=== PATIENT | female | born 1945 | race Caucasian/White ===

== ENCOUNTER 2022-11-12 01:34 | Outpatient (RCR) | payer BC, SELFPAY ==
[2022-10-22] MEDS: Normal Saline Flush 10 ML SYR IVP (10:58)
[2022-10-22 11:14] LABS: Abs Immature Grans 0.05 10^3/uL (0.0-0.06); Absolute Basophil Count 0.07 10^3/uL (0.0-0.2); Absolute Monocyte Count 0.67 10^3/uL (0.1-0.8); Basophils % 0.6; Eosinophils % 1.4; Immature Grans % 0.5; Lymphocytes % 33.2; MCH 30.1 pg (27.0-33.0); MCHC 33.3 % (32.0-36.0); MCV 90 fL (80-95); MPV 9.5 fL (8.0-11.0); Neutrophils % 58.3; Platelet Count 374 10^3/uL (130-400); RBC 4.32 10^6/uL (3.93-5.22); RDW 12.9 % (11.7-14.6); RDW-SD 42.2 fL
[2022-10-22 11:16] LABS: Absolute Eosinophil Count 0.16 10^3/uL (0.0-0.7); Absolute Lymphocyte Count 3.69 10^3/uL (1.2-3.4); Absolute Neutrophil Count 6.47 10^3/uL (1.2-6.7)
[2022-10-22 11:30] LABS: ALT 13 U/L (14-59); AST 18 U/L (15-37); Albumin 3.4 g/dL (3.4-5.0); Alkaline Phosphatase 86 U/L (46-116); BUN 17 mg/dL (7-18); Bilirubin, Total 0.2 mg/dL (0.2-1.0); CREATININE 0.4 mg/dL (0.55-1.02); Calcium 8.8 mg/dL (8.5-10.1); Chloride 103 mmol/L (98-107); Estimated GFR 101.87 (mL/min/1.73m2); Glucose 100 mg/dL (74-106); Potassium 3.7 mmol/L (3.5-5.1); Sodium 138 mmol/L (136-145); Total Protein 6.8 g/dL (6.4-8.2)
[2022-10-28 11:28] LABS: Abs Immature Grans 0.04 10^3/uL (0.0-0.06); Absolute Basophil Count 0.05 10^3/uL (0.0-0.2); Absolute Eosinophil Count 0.18 10^3/uL (0.0-0.7); Absolute Lymphocyte Count 1.05 10^3/uL (1.2-3.4); Absolute Monocyte Count 0.79 10^3/uL (0.1-0.8); Absolute Neutrophil Count 5.66 10^3/uL (1.2-6.7); Basophils % 0.6; Eosinophils % 2.3; HCT 40.3 % (36.0-46.0); HGB 13.6 g/dL (11.2-15.7); Immature Grans % 0.5; Lymphocytes % 13.5; MCH 30.2 pg (27.0-33.0); MCHC 33.7 % (32.0-36.0); MCV 90 fL (80-95); MPV 9.2 fL (8.0-11.0); Monocytes % 10.2; Neutrophils % 72.9; Platelet Count 320 10^3/uL (130-400); RDW 13.2 % (11.7-14.6); RDW-SD 42.8 fL; WBC 7.77 10^3/uL (4.4-10.8)
[2022-10-28] MEDS: Normal Saline Flush 10 ML SYR IVP (11:35)
[2022-10-28 11:43] LABS: ALT 11 U/L (14-59); AST 14 U/L (15-37); Albumin 3.2 g/dL (3.4-5.0); Alkaline Phosphatase 90 U/L (46-116); Anion Gap 5.9 mmol/L (3-11); BUN 13 mg/dL (7-18); Bilirubin, Total 0.3 mg/dL (0.2-1.0); CO2 29.1 mmol/L (21.0-32.0); CREATININE 0.4 mg/dL (0.55-1.02); Calcium 8.6 mg/dL (8.5-10.1); Chloride 104 mmol/L (98-107); Estimated GFR 101.87 (mL/min/1.73m2); Glucose 117 mg/dL (74-106); Potassium 3.8 mmol/L (3.5-5.1); Sodium 139 mmol/L (136-145); Total Protein 6.5 g/dL (6.4-8.2)
[2022-11-05] MEDS: Normal Saline Flush 10 ML SYR IVP (11:44)
[2022-11-05 11:56] LABS: Abs Immature Grans 0.03 10^3/uL (0.0-0.06); Absolute Basophil Count 0.06 10^3/uL (0.0-0.2); Absolute Eosinophil Count 0.12 10^3/uL (0.0-0.7); Absolute Lymphocyte Count 1.18 10^3/uL (1.2-3.4); Absolute Monocyte Count 0.69 10^3/uL (0.1-0.8); Absolute Neutrophil Count 5.49 10^3/uL (1.2-6.7); Basophils % 0.8; Eosinophils % 1.6; HGB 13.4 g/dL (11.2-15.7); Immature Grans % 0.4; Lymphocytes % 15.6; MCH 29.8 pg (27.0-33.0); MCHC 33.5 % (32.0-36.0); MCV 89 fL (80-95); MPV 9.7 fL (8.0-11.0); Monocytes % 9.1; Neutrophils % 72.5; Platelet Count 304 10^3/uL (130-400); RBC 4.49 10^6/uL (3.93-5.22); RDW 13.1 % (11.7-14.6); RDW-SD 42.5 fL; WBC 7.57 10^3/uL (4.4-10.8)
[2022-11-05 12:15] LABS: ALT 16 U/L (14-59); AST 22 U/L (15-37); Albumin 3.3 g/dL (3.4-5.0); Alkaline Phosphatase 83 U/L (46-116); Anion Gap 7.5 mmol/L (3-11); BUN 17 mg/dL (7-18); Bilirubin, Total 0.2 mg/dL (0.2-1.0); CO2 28.5 mmol/L (21.0-32.0); CREATININE 0.5 mg/dL (0.55-1.02); Calcium 8.9 mg/dL (8.5-10.1); Chloride 103 mmol/L (98-107); Estimated GFR 96.54 (mL/min/1.73m2); Glucose 106 mg/dL (74-106); Sodium 139 mmol/L (136-145); Total Protein 6.7 g/dL (6.4-8.2)
[2022-11-12] MEDS: Normal Saline Flush 10 ML SYR IVP (09:38)
[2022-11-12 09:42] LABS: Abs Immature Grans 0.02 10^3/uL (0.0-0.06); Absolute Basophil Count 0.05 10^3/uL (0.0-0.2); Absolute Eosinophil Count 0.14 10^3/uL (0.0-0.7); Absolute Lymphocyte Count 0.97 10^3/uL (1.2-3.4); Absolute Monocyte Count 0.71 10^3/uL (0.1-0.8); Absolute Neutrophil Count 6.74 10^3/uL (1.2-6.7); Basophils % 0.6; Eosinophils % 1.6; HCT 40.9 % (36.0-46.0); HGB 13.8 g/dL (11.2-15.7); Immature Grans % 0.2; Lymphocytes % 11.2; MCH 30.3 pg (27.0-33.0); MCHC 33.7 % (32.0-36.0); MCV 90 fL (80-95); MPV 9.4 fL (8.0-11.0); Monocytes % 8.2; Neutrophils % 78.2; Platelet Count 329 10^3/uL (130-400); RBC 4.55 10^6/uL (3.93-5.22); RDW 13.2 % (11.7-14.6); RDW-SD 43.5 fL; WBC 8.63 10^3/uL (4.4-10.8)
[2022-11-12 09:57] LABS: ALT 15 U/L (14-59); AST 14 U/L (15-37); Albumin 3.2 g/dL (3.4-5.0); Alkaline Phosphatase 84 U/L (46-116); Anion Gap 6.2 mmol/L (3-11); BUN 16 mg/dL (7-18); Bilirubin, Total 0.3 mg/dL (0.2-1.0); CO2 28.8 mmol/L (21.0-32.0); CREATININE 0.5 mg/dL (0.55-1.02); Calcium 8.6 mg/dL (8.5-10.1); Chloride 105 mmol/L (98-107); Estimated GFR 96.54 (mL/min/1.73m2); Glucose 140 mg/dL (74-106); Potassium 3.7 mmol/L (3.5-5.1); Sodium 140 mmol/L (136-145); Total Protein 6.5 g/dL (6.4-8.2)
== END 2022-11-18 23:59 | disposition home or self-care (01) ==
LOC: INF 01:34
PROVIDERS: PCP Family Medicine; Visit Provider Nurse Practitioner Adult Health
DX: Z45.2 Encounter for adjustment and management of vascular access device (principal); C84.10 Sezary disease, unspecified site
CPT/HCPCS: 36591; 80053; 85025

== ENCOUNTER 2022-12-19 12:30 | Outpatient (RCR) | payer BC, SELFPAY ==
[2022-11-19 10:37] LABS: Abs Immature Grans 0.03 10^3/uL (0.0-0.06); Absolute Basophil Count 0.04 10^3/uL (0.0-0.2); Absolute Eosinophil Count 0.12 10^3/uL (0.0-0.7); Absolute Lymphocyte Count 0.96 10^3/uL (1.2-3.4); Absolute Monocyte Count 0.65 10^3/uL (0.1-0.8); Absolute Neutrophil Count 6.46 10^3/uL (1.2-6.7); Basophils % 0.5; Eosinophils % 1.5; HCT 40.6 % (36.0-46.0); HGB 13.7 g/dL (11.2-15.7); Immature Grans % 0.4; Lymphocytes % 11.6; MCH 30.3 pg (27.0-33.0); MCHC 33.7 % (32.0-36.0); MCV 90 fL (80-95); MPV 9.6 fL (8.0-11.0); Monocytes % 7.9; Neutrophils % 78.1; Platelet Count 314 10^3/uL (130-400); RBC 4.52 10^6/uL (3.93-5.22); RDW 13.2 % (11.7-14.6); RDW-SD 43.8 fL; WBC 8.26 10^3/uL (4.4-10.8)
[2022-11-19] MEDS: Normal Saline Flush 10 ML SYR IVP (10:37)
[2022-11-19 10:56] LABS: ALT 14 U/L (14-59); AST 14 U/L (15-37); Albumin 3.3 g/dL (3.4-5.0); Alkaline Phosphatase 84 U/L (46-116); Anion Gap 6.2 mmol/L (3-11); BUN 18 mg/dL (7-18); Bilirubin, Total 0.3 mg/dL (0.2-1.0); CO2 28.8 mmol/L (21.0-32.0); CREATININE 0.5 mg/dL (0.55-1.02); Calcium 8.8 mg/dL (8.5-10.1); Chloride 105 mmol/L (98-107); Estimated GFR 96.54 (mL/min/1.73m2); Glucose 104 mg/dL (74-106); Sodium 140 mmol/L (136-145); Total Protein 6.7 g/dL (6.4-8.2)
[2022-12-04] MEDS: Normal Saline Flush 10 ML SYR IVP (13:10)
[2022-12-04 13:14] LABS: Abs Immature Grans 0.01 10^3/uL (0.0-0.06); Absolute Basophil Count 0.06 10^3/uL (0.0-0.2); Absolute Eosinophil Count 0.11 10^3/uL (0.0-0.7); Absolute Lymphocyte Count 0.95 10^3/uL (1.2-3.4); Absolute Neutrophil Count 5.32 10^3/uL (1.2-6.7); Basophils % 0.9; Eosinophils % 1.6; HCT 40.8 % (36.0-46.0); HGB 13.8 g/dL (11.2-15.7); Immature Grans % 0.1; Lymphocytes % 13.5; MCH 30.5 pg (27.0-33.0); MCHC 33.8 % (32.0-36.0); MCV 90 fL (80-95); MPV 9.8 fL (8.0-11.0); Monocytes % 8.5; Neutrophils % 75.4; Platelet Count 286 10^3/uL (130-400); RBC 4.52 10^6/uL (3.93-5.22); RDW 12.8 % (11.7-14.6); RDW-SD 42.8 fL; WBC 7.05 10^3/uL (4.4-10.8)
[2022-12-04 13:28] LABS: ALT 15 U/L (14-59); AST 19 U/L (15-37); Albumin 3.3 g/dL (3.4-5.0); Alkaline Phosphatase 79 U/L (46-116); Anion Gap 5.7 mmol/L (3-11); BUN 18 mg/dL (7-18); Bilirubin, Total 0.2 mg/dL (0.2-1.0); CO2 28.3 mmol/L (21.0-32.0); CREATININE 0.4 mg/dL (0.55-1.02); Calcium 8.8 mg/dL (8.5-10.1); Chloride 104 mmol/L (98-107); Estimated GFR 101.87 (mL/min/1.73m2); Glucose 88 mg/dL (74-106); Potassium 3.6 mmol/L (3.5-5.1); Sodium 138 mmol/L (136-145); Total Protein 6.7 g/dL (6.4-8.2)
[2022-12-19] MEDS: Normal Saline Flush 10 ML SYR IVP (12:29)
[2022-12-19 12:37] LABS: Abs Immature Grans 0.02 10^3/uL (0.0-0.06); Absolute Basophil Count 0.05 10^3/uL (0.0-0.2); Absolute Eosinophil Count 0.11 10^3/uL (0.0-0.7); Absolute Lymphocyte Count 0.85 10^3/uL (1.2-3.4); Absolute Monocyte Count 0.58 10^3/uL (0.1-0.8); Absolute Neutrophil Count 4.88 10^3/uL (1.2-6.7); Basophils % 0.8; Eosinophils % 1.7; HCT 38.6 % (36.0-46.0); HGB 13.3 g/dL (11.2-15.7); Immature Grans % 0.3; Lymphocytes % 13.1; MCH 30.7 pg (27.0-33.0); MCHC 34.5 % (32.0-36.0); MCV 89 fL (80-95); MPV 9.6 fL (8.0-11.0); Monocytes % 8.9; Neutrophils % 75.2; Platelet Count 265 10^3/uL (130-400); RBC 4.33 10^6/uL (3.93-5.22); RDW 12.6 % (11.7-14.6); RDW-SD 41.5 fL; WBC 6.49 10^3/uL (4.4-10.8)
[2022-12-19 12:51] LABS: ALT 16 U/L (14-59); AST 16 U/L (15-37); Albumin 3.1 g/dL (3.4-5.0); Alkaline Phosphatase 74 U/L (46-116); Anion Gap 6.1 mmol/L (3-11); BUN 15 mg/dL (7-18); Bilirubin, Total 0.2 mg/dL (0.2-1.0); CO2 28.9 mmol/L (21.0-32.0); CREATININE 0.4 mg/dL (0.55-1.02); Calcium 8.8 mg/dL (8.5-10.1); Chloride 104 mmol/L (98-107); Estimated GFR 101.87 (mL/min/1.73m2); Glucose 102 mg/dL (74-106); Potassium 3.8 mmol/L (3.5-5.1); Sodium 139 mmol/L (136-145); Total Protein 6.3 g/dL (6.4-8.2)
== END 2022-12-19 23:59 | disposition home or self-care (01) ==
LOC: INF 12:30
PROVIDERS: PCP Family Medicine; Visit Provider Nurse Practitioner Adult Health
DX: Z45.2 Encounter for adjustment and management of vascular access device (principal); C84.10 Sezary disease, unspecified site
CPT/HCPCS: 36591; 80053; 85025

== ENCOUNTER 2023-01-16 09:30 | Outpatient (RCR) | payer BC, SELFPAY ==
[2022-12-31] MEDS: Normal Saline Flush 10 ML SYR IVP (13:40)
--- OUTSIDE RECORDS SUMMARY | 2022-12-31 13:42 | XMS_ITS | Continuity of Care Document ---
Author Name Unknown Organization 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 Name Role Phone Jackson Robin Primary Care Physician [phone] Encounter [facility] [id number] Date(s): 07/25/22 - 07/25/22 [facility] [address] [place] [address] Discharge Disposition: Home or Self Care Attending Physician: Channing Downs MD Admitting Physician: Channing Downs MD Referring Physician: Channing Downs MD Allergies, Adverse Reactions, Alerts No Known Medication Allergies Functional Status 07/25/22 ADLs Independent Family Member Travel History No recent t ravel Recent Travel History No recent travel Other exposure to Infectious Disease Non e Immunizations Given and Recorded Vaccine Date Status Refusal Reason tetanus-diphth toxoids (Td) adult/adol 12/04/21 Re corded SARS-CoV-2 (COVID-19) mRNA-1273 vaccine 08/05/21 R ecorded SARS-CoV-2 (COVID-19) mRNA-1273 vaccine 12/05/20 R ecorded SARS-CoV-2 (COVID-19) mRNA-1273 vaccine 11/07/20 R ecorded influenza, unspecified formulation 06/19/21 Record ed influenza, unspecified formulation 06/13/20 Record ed influenza, unspecified formulation 06/09/19 Record ed influenza, unspecified formulation 06/17/18 Record ed influenza, unspecified formulation 06/04/17 Record ed influenza virus vaccine, inactivated 06/24/16 Joel rded influenza virus vaccine, inactivated 06/27/15 Joel rded influenza virus vaccine, inactivated 06/14/14 Joel rded influenza virus vaccine, inactivated 06/15/13 Joel rded influenza virus vaccine, inactivated 06/10/12 Joel rded influenza virus vaccine, inactivated 06/06/11 Joel rded influenza virus vaccine, inactivated 06/21/10 Joel rded influenza virus vaccine, inactivated 09/06/09 Joel rded influenza virus vaccine, inactivated 06/14/08 Joel rded influenza virus vaccine, inactivated 07/05/07 Joel rded influenza virus vaccine, inactivated 06/21/06 Joel rded pneumococcal 13-valent conjugate vaccine 08/13/15 Recorded zoster vaccine live 12/16/12 Recorded tetanus/diphth/pertuss (Tdap) adult/adol 10/15/11 Recorded pneumococcal 23-polyvalent vaccine 06/26/10 Record ed Medications emollient topical cream emollient topical cream, PRN other (see comment), apply 5 g twice a day by topical route as needed Start Date: 04/29/22 Status: Ordered Estrace 2 mg oral tablet 2 mg = 1 tab, Oral, Daily, # 90 tab, 0 Refill(s) Start Date: 03/12/22 Status: Ordered hydrOXYzine hydrochloride 10 mg oral tablet 0 Refill(s) Start Date: 03/12/22 Status: Ordered ibuprofen 600 mg oral tablet Start Date: 04/29/22 Status: Ordered multivitamin adult, oral tablet 1 tab, Oral, every morning Start Date: 04/29/22 Status: Ordered Synthroid 50 mcg (0.05 mg) oral tablet 50 mcg = 1 tab, Oral, Daily, # 60 tab, 0 Refill(s) Start Date: 03/12/22 Status: Ordered triamcinolone 0.1% topical ointment Start Date: 04/29/22 Status: Ordered Problem List Condition Confirmation Course Effective Dates Status H ealth Status Informant Abnormal gait Confirmed Active Aortic valve regurgitation Confirmed Active 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 Benign paroxysmal positional vertigo Confirmed Active Cataract 1 Confirmed 09/13/18 Active Cervical spondylosis with radiculopathy Confirmed Active Degeneration of cervical intervertebral disc Confirmed Active Dizziness and giddiness Confirmed Active Elevated blood pressure reading Confirmed Active Essential thrombocythemia Confirmed Active Gastroesophageal reflux disease Confirmed Active Hypertension Confirmed Active Hypothyroidism Confirmed Active Lymphoma, Hodgkins 2 Confirmed Active Neck pain Confirmed Active Palpitations Confirmed Active Blood pressure check Confirmed Active Postoperative nausea and vomiting Confirmed 01/31/19 Active Rosacea Confirmed Active Small vessel cerebrovascular disease Confirmed Active Positive colorectal cancer screening using Cologuard test Confirmed Active 1Right 2NON Hodg. Lymphoma Procedures Procedure Date Related Diagnosis Body Site Status Release palm contracture 1 06/03/21 Completed Release 2 10/29/20 Completed Procedure on hand 3 02/01/19 Compl eted Procedure on hand 4 07/07/18 Compl eted Cervical spine surgery 5 09/20/04 Completed Cholecystectomy 1987 Completed Appendectomy Completed Brain surgery 6, 7 Comple dylan Colonoscopy 8 Completed Hysterectomy Completed Placement procedure 9, 10, 11 Completed 1L palmar Dupuytren's contracture w/index finger extension 2excision of Dupuytren's contracture palmar plus digital extension to the R long finger 3R long finger soft tissue skin rearrangement for 3cm length 4removal of palmar Dupuytren's w/ extension out to the PIP of the L small finger 5C5-C6 level 6Removed 20+ yrs ago. 7Tumor removed, done in [place] 8X2 9Power Port ( Mediport ) placed 03/18/22 at [facility]. 10Right Chest. 11. Vital Signs Most recent to oldest [Reference Range]: 1 2 3 Temperature Temporal Artery [36-38 Deg C] 36.3 Deg C (07/25/22 3:15 PM) 36.3 Deg C (07/25/22 2:48 PM) 37.0 Deg C (07/25/22 12:33 PM) Temperature Temporal Artery (DegF) [97.3-100 Deg F] 97.34 Deg F (07/25/22 3:15 PM) 97.34 Deg F (07/25/22 2:48 PM) Peripheral Pulse Rate [60-100 bpm] 66 bpm (07/25/22 3:15 PM) 67 bpm (07/25/22 3:00 PM) 66 bpm (07/25/22 2:55 PM) Heart Rate Monitored [60-100 bpm] 68 bpm (07/25/22 3:15 PM) 68 bpm (07/25/22 3:00 PM) 67 bpm (07/25/22 2:55 PM) Respiratory Rate [12-24 br/min] 22 br/min (07/25/22 3:15 PM) 12 br/min (07/25/22 3:00 PM) 17 br/min (07/25/22 2:55 PM) Blood Pressure [90-140/60-90 mmHg] 140/81mmHg (07/25/22 3:15 PM) 139/64mmHg (07/25/22 3:00 PM) 150/62mmHg *HI* (07/25/22 2:55 PM) Mean Arterial Pressure, Cuff [65-140 mmHg] 101 mmHg (07/25/22 3:15 PM) 89 mmHg (07/25/22 3:00 PM) 91 mmHg (07/25/22 2:55 PM) Height 147.000 cm (07/24/22 9:58 AM) Height/Length Dosing 147.000 cm (07/24/22 9:58 AM) Social History Social History Type Response Tobacco Former tobacco user Tobacco Use:. Sex Female Hospital Discharge Instructions Patient Education 07/25/2022 14:05:09 ss colonoscopy discharge instructions (CUSTOM) COLONOSCOPY / SIGMOIDOSCOPY Following day: Return to full activity, including work. Diet: Eat and drink normally, unless instructed otherwise. Treatment for common after affects: Mild abdominal pain, bloating, or excessive gas: Rest, eat lightly and use a heating pad. Symptoms to watch for and report to your physician: SEVERE abdominal pain or bloating. Fever within 24 hours after procedure. A large amount of rectal bleeding. (A small amount of blood from the rectum is not serious, especially if hemorrhoids are present.) If a polyp has been removed- for the next seven days: Do not take aspirin. If you did NOT stop taking aspirin before your procedure, continue taking it even if you???ve had a polyp removed. If bright red rectal bleeding occurs, call your physician. If you have had a Colonoscopy: Do not attempt to drive a vehicle or operate power equipment of any kind for at least 24 hours after discharge from the hospital. Do not consume alcoholic beverages or other mood-altering drugs on the day of surgery. Mild irritation at needle site: Apply warm, moist pack to area for 20 minutes four times a day for 2-3 days. Call physician if persistent redness and/or drainage at needle site. In the event of any problems after surgery, do not hesitate to contact your doctor, [facility] , or the Emergency Room at [phone]. Diagnosis: Doctor: Follow Up Appointment: 07/25/2022 14:04:56 Diverticulosis Diverticulosis Diverticulosis is a condition that develops when small pouches (diverticula) form in the wall of the large intestine (colon). The colon is where water is absorbed and stool (feces) is formed. The pouches form when the inside layer of the colon pushes through weak spots in the outer layers of the colon. You may have a few pouches or many of them. The pouches usually do not cause problems unless they become inflamed or infected. When this happens, the condition is called diverticulitis. What are the causes? The cause of this condition is not known. What increases the risk? The following factors may make you more likely to develop this condition: ??? Being older than age 60. Your risk for this condition increases with age. Diverticulosis is rare among people younger than age 30. By age 80, many people have it. ??? Eating a low-fiber diet. ??? Having frequent constipation. ??? Being overweight. ??? Not getting enough exercise. ??? Smoking. ??? Taking nmyz-ilj-aauzjon pain medicines, like aspirin and ibuprofen. ??? Having a family history of diverticulosis. What are the signs or symptoms? In most people, there are no symptoms of this condition. If you do have symptoms, they may include: ??? Bloating. ??? Cramps in the abdomen. ??? Constipation or diarrhea. ??? Pain in the lower left side of the abdomen. How is this diagnosed? Because diverticulosis usually has no symptoms, it is most often diagnosed during an exam for othercolon problems. The condition may be diagnosed by: ??? Using a flexible scope to examine the colon (colonoscopy). ??? Taking an X-ray of the colon after dye has been put into the colon (barium enema). ??? Having a CT scan. How is this treated? You may not need treatment for this condition. Your health care provider may recommend treatment toprevent problems. You may need treatment if you have symptoms or if you previously had diverticulitis. Treatment may include: ??? Eating a high-fiber diet. ??? Taking a fiber supplement. ??? Taking a live bacteria supplement (probiotic). ??? Taking medicine to relax your colon. Follow these instructions at home: Medicines ??? Take qjbj-zma-qeaxdfe and prescription medicines only as told by your health care provider. ??? If told by your health care provider, take a fiber supplement or probiotic. Constipation prevention Your condition may cause constipation. To prevent or treat constipation, you may need to: ??? Drink enough fluid to keep your urine pale yellow. ??? Take mwbw-nyg-ontrgej or prescription medicines. ??? Eat foods that are high in fiber, such as beans, whole grains, and fresh fruits and vegetables. ??? Limit foods that are high in fat and processed sugars, such as fried or sweet foods. General instructions ??? Try not to strain when you have a bowel movement. ??? Keep all follow-up visits as told by your health care provider. This is important. Contact a health care provider if you: ??? Have pain in your abdomen. ??? Have bloating. ??? Have cramps. ??? Have not had a bowel movement in 3 days. Get help right away if: ??? Your pain gets worse. ??? Your bloating becomes very bad. ??? You have a fever or chills, and your symptoms suddenly get worse. ??? You vomit. ??? You have bowel movements that are bloody or black. ??? You have bleeding from your rectum. Summary ??? Diverticulosis is a condition that develops when small pouches (diverticula) form in the wall of the large intestine (colon). ??? You may have a few pouches or many of them. ??? This condition is most often diagnosed during an exam for other colon problems. ??? Treatment may include increasing the fiber in your diet, taking supplements, or taking medicines. This information is not intended to replace advice given to you by your health care provider. Make sure you discuss any questions you have with your health care provider. Document Revised: 04/05/2020 Document Reviewed: 04/05/2020 [employer] Patient Education ?? 2021 [employer] 07/25/2022 14:04:54 Colon Polyps Colon Polyps Colon polyps are tissue growths inside the colon, which is part of the large intestine. They are one of the types of polyps that can grow in the body. A polyp may be a round bump or a mushroom-shapedgrowth. You could have one polyp or more than one. Most colon polyps are noncancerous (benign). However, some colon polyps can become cancerous over time. Finding and removing the polyps early can help prevent this. What are the causes? The exact cause of colon polyps is not known. What increases the risk? The following factors may make you more likely to develop this condition: ??? Having a family history of colorectal cancer or colon polyps. ??? Being older than 45 years of age. ??? Being younger than 45 years of age and having a significant family history of colorectal canceror colon polyps or a genetic condition that puts you at higher risk of getting colon polyps. ??? Having inflammatory bowel disease, such as ulcerative colitis or Crohn's disease. ??? Having certain conditions passed from parent to child (hereditary conditions), such as: ??? Familial adenomatous polyposis (FAP). ??? [place] syndrome. ??? Turcot syndrome. ??? Peutz???Jeghers syndrome. ??? MUTYH-associated polyposis (MAP). ??? Being overweight. ??? Certain lifestyle factors. These include smoking cigarettes, drinking too much alcohol, not getting enough exercise, and eating a diet that is high in fat and red meat and low in fiber. ??? Having had childhood cancer that was treated with radiation of the abdomen. What are the signs or symptoms? Many times, there are no symptoms. If you have symptoms, they may include: ??? Blood coming from the rectum during a bowel movement. ??? Blood in the stool (feces). The blood may be bright red or very dark in color. ??? Pain in the abdomen. ??? A change in bowel habits, such as constipation or diarrhea. How is this diagnosed? This condition is diagnosed with a colonoscopy. This is a procedure in which a lighted, flexible scope is inserted into the opening between the buttocks (anus) and then passed into the colon to examine the area. Polyps are sometimes found when a colonoscopy is done as part of routine cancer screening tests. How is this treated? This condition is treated by removing any polyps that are found. Most polyps can be removed during a colonoscopy. Those polyps will then be tested for cancer. Additional treatment may be needed depending on the results of testing. Follow these instructions at home: Eating and drinking ??? Eat foods that are high in fiber, such as fruits, vegetables, and whole grains. ??? Eat foods that are high in calcium and vitamin D, such as milk, cheese, yogurt, eggs, liver, fish, and broccoli. ??? Limit foods that are high in fat, such as fried foods and desserts. ??? Limit the amount of red meat, precooked or cured meat, or other processed meat that you eat, such as hot dogs, sausages, anderson, or meat loaves. ??? Limit sugary drinks. Lifestyle ??? Maintain a healthy weight, or lose weight if recommended by your health care provider. ??? Exercise every day or as told by your health care provider. ??? Do not use any products that contain nicotine or tobacco, such as cigarettes, e-cigarettes, andchewing tobacco. If you need help quitting, ask your health care provider. ??? Do not drink alcohol if: ??? Your health care provider tells you not to drink. ??? You are , may be , or are planning to become . ??? If you drink alcohol: ??? Limit how much you use to: ??? 0???1 drink a day for women. ??? 0???2 drinks a day for men. ??? Know how much alcohol is in your drink. In the [place] one drink equals one 12 oz bottle of beer (355 mL), one 5 oz glass of wine (148 mL), or one 1?? oz glass of hard liquor (44 mL). General instructions ??? Take obil-twx-tiylnte and prescription medicines only as told by your health care provider. ??? Keep all follow-up visits. This is important. This includes having regularly scheduled colonoscopies. Talk to your health care provider about when you need a colonoscopy. Contact a health care provider if: ??? You have new or worsening bleeding during a bowel movement. ??? You have new or increased blood in your stool. ??? You have a change in bowel habits. ??? You lose weight for no known reason. Summary ??? Colon polyps are tissue growths inside the colon, which is part of the large intestine. They are one type of polyp that can grow in the body. ??? Most colon polyps are noncancerous (benign), but some can become cancerous over time. ??? This condition is diagnosed with a colonoscopy. ??? This condition is treated by removing any polyps that are found. Most polyps can be removed during a colonoscopy. This information is not intended to replace advice given to you by your health care provider. Make sure you discuss any questions you have with your health care provider. Document Revised: 12/26/2020 Document Reviewed: 12/26/2020 [employer] Patient Education ?? 2021 [employer]. Discharge instructions * Jose M Connelly RN: PERFORM Event Display: Discharge Instructions Authored Date: [id number] ANATOLIY MCCARTHY :1945 Age:77 years Sex:Female Visit Date:07/25/2022 Primary Care Physician: Jackson Robin MD Hospital Discharge Instructions We would like to thank you for allowing us to assist you with your healthcare needs. The following includes patient education materials and information regarding your injury/illness. After you leave the hospital, you may get your health information including your test results, physician notes and discharge information by accessing your Patient Portal. Your Next Steps Discharge Orders Discharge Patient Instructions, Rest today. Resume diet and activities as tolerated. Your Summary Your Care Team Admitting Physician - Channing Downs MD Attending Physician - Channing Downs MD Primary Care Physician - Jackson Robin MD Referring Physician - Channing Downs MD Allergies No Known Medication Allergies Education Materials COLONOSCOPY / SIGMOIDOSCOPY ? Following day: Return to full activity, including work. Diet: Eat and drink normally, unless instructed otherwise. ? Treatment for common after affects: Mild abdominal pain, bloating, or excessive gas: Rest, eat lightly and use a heating pad. ? Symptoms to watch for and report to your physician: SEVERE abdominal pain or bloating. ? Fever within 24 hours after procedure. ? A large amount of rectal bleeding. (A small amount of blood from the rectum is not serious, especially if hemorrhoids are present.) ? If a polyp has been removed- for the next seven days: Do not take aspirin. If you did NOT stop taking aspirin before your procedure, continue taking it even if you???ve had a polyp removed. ? If bright red rectal bleeding occurs, call your physician. ? If you have had a Colonoscopy: Do not attempt to drive a vehicle or operate power equipment of any kind for at least 24 hours after discharge from the hospital. ? Do not consume alcoholic beverages or other mood-altering drugs on the day of surgery. ? Mild irritation at needle site: Apply warm, moist pack to area for 20 minutes four times a day for 2-3 days. ? Call physician if persistent redness and/or drainage at needle site. ? In the event of any problems after surgery, do not hesitate to contact your doctor, [facility] , or the Emergency Room at [phone]. Diagnosis: Doctor: Follow Up Appointment: Diverticulosis Diverticulosis is a condition that develops when small pouches (diverticula) form in the wall of the large intestine (colon). The colon is where water is absorbed and stool (feces) is formed. The pouches form when the inside layer of the colon pushes through weak spots in the outer layers of the colon. You may have a few pouches or many of them. The pouches usually do not cause problems unless they become inflamed or infected. When this happens, the condition is called diverticulitis. What are the causes? The cause of this condition is not known. What increases the risk? The following factors may make you more likely to develop this condition: ? Being older than age 60. Your risk for this condition increases with age. Diverticulosis is rare among people younger than age 30. By age 80, many people have it. ? Eating a low-fiber diet. ? Having frequent constipation. ? Being overweight. ? Not getting enough exercise. ? Smoking. ? Taking heug-pme-xtpsfoa pain medicines, like aspirin and ibuprofen. ? Having a family history of diverticulosis. What are the signs or symptoms? In most people, there are no symptoms of this condition. If you do have symptoms, they may include: ? Bloating. ? Cramps in the abdomen. ? Constipation or diarrhea. ? Pain in the lower left side of the abdomen. How is this diagnosed? Because diverticulosis usually has no symptoms, it is most often diagnosed during an exam for othercolon problems. The condition may be diagnosed by: ? Using a flexible scope to examine the colon (colonoscopy). ? Taking an X-ray of the colon after dye has been put into the colon (barium enema). ? Having a CT scan. How is this treated? You may not need treatment for this condition. Your health care provider may recommend treatment toprevent problems. You may need treatment if you have symptoms or if you previously had diverticulitis. Treatment may include: ? Eating a high-fiber diet. ? Taking a fiber supplement. ? Taking a live bacteria supplement (probiotic). ? Taking medicine to relax your colon. Follow these instructions at home: Medicines ? Take mpry-tsd-pvqirpu and prescription medicines only as told by your health care provider. ? If told by your health care provider, take a fiber supplement or probiotic. Constipation prevention Your condition may cause constipation. To prevent or treat constipation, you may need to: ? Drink enough fluid to keep your urine pale yellow. ? Take xafc-gqx-ammypex or prescription medicines. ? Eat foods that are high in fiber, such as beans, whole grains, and fresh fruits and vegetables. ? Limit foods that are high in fat and processed sugars, such as fried or sweet foods. General instructions ? Try not to strain when you have a bowel movement. ? Keep all follow-up visits as told by your health care provider. This is important. Contact a health care provider if you: ? Have pain in your abdomen. ? Have bloating. ? Have cramps. ? Have not had a bowel movement in 3 days. Get help right away if: ? Your pain gets worse. ? Your bloating becomes very bad. ? You have a fever or chills, and your symptoms suddenly get worse. ? You vomit. ? You have bowel movements that are bloody or black. ? You have bleeding from your rectum. Summary ? Diverticulosis is a condition that develops when small pouches (diverticula) form in the wall of the large intestine (colon). ? You may have a few pouches or many of them. ? This condition is most often diagnosed during an exam for other colon problems. ? Treatment may include increasing the fiber in your diet, taking supplements, or taking medicines. This information is not intended to replace advice given to you by your health care provider. Make sure you discuss any questions you have with your health care provider. Document Revised: 04/05/2020 Document Reviewed: 04/05/2020 [employer] Patient Education ?? 2021 [employer]. Colon Polyps Colon polyps are tissue growths inside the colon, which is part of the large intestine. They are one of the types of polyps that can grow in the body. A polyp may be a round bump or a mushroom-shapedgrowth. You could have one polyp or more than one. Most colon polyps are noncancerous (benign). However, some colon polyps can become cancerous over time. Finding and removing the polyps early can help prevent this. What are the causes? The exact cause of colon polyps is not known. What increases the risk? The following factors may make you more likely to develop this condition: ? Having a family history of colorectal cancer or colon polyps. ? Being older than 45 years of age. ? Being younger than 45 years of age and having a significant family history of colorectal cancer or colon polyps or a genetic condition that puts you at higher risk of getting colon polyps. ? Having inflammatory bowel disease, such as ulcerative colitis or Crohn's disease. ? Having certain conditions passed from parent to child (hereditary conditions), such as: ? Familial adenomatous polyposis (FAP). ? [place] syndrome. ? Turcot syndrome. ? Peutz???Jeghers syndrome. ? MUTYH-associated polyposis (MAP). ? Being overweight. ? Certain lifestyle factors. These include smoking cigarettes, drinking too much alcohol, not gettingenough exercise, and eating a diet that is high in fat and red meat and low in fiber. ? Having had childhood cancer that was treated with radiation of the abdomen. What are the signs or symptoms? Many times, there are no symptoms. If you have symptoms, they may include: ? Blood coming from the rectum during a bowel movement. ? Blood in the stool (feces). The blood may be bright red or very dark in color. ? Pain in the abdomen. ? A change in bowel habits, such as constipation or diarrhea. How is this diagnosed? This condition is diagnosed with a colonoscopy. This is a procedure in which a lighted, flexible scope is inserted into the opening between the buttocks (anus) and then passed into the colon to examine the area. Polyps are sometimes found when a colonoscopy is done as part of routine cancer screening tests. How is this treated? This condition is treated by removing any polyps that are found. Most polyps can be removed during a colonoscopy. Those polyps will then be tested for cancer. Additional treatment may be needed depending on the results of testing. Follow these instructions at home: Eating and drinking ? Eat foods that are high in fiber, such as fruits, vegetables, and whole grains. ? Eat foods that are high in calcium and vitamin D, such as milk, cheese, yogurt, eggs, liver, fish, and broccoli. ? Limit foods that are high in fat, such as fried foods and desserts. ? Limit the amount of red meat, precooked or cured meat, or other processed meat that you eat, such as hot dogs, sausages, anderson, or meat loaves. ? Limit sugary drinks. Lifestyle ? Maintain a healthy weight, or lose weight if recommended by your health care provider. ? Exercise every day or as told by your health care provider. ? Do not use any products that contain nicotine or tobacco, such as cigarettes, e- cigarettes, and chewing tobacco. If you need help quitting, ask your health care provider. ? Do not drink alcohol if: ? Your health care provider tells you not to drink. ? You are , may be , or are planning to become . ? If you drink alcohol: ? Limit how much you use to: ? 0???1 drink a day for women. ? 0???2 drinks a day for men. ? Know how much alcohol is in your drink. In the [place] one drink equals one 12 oz bottle of beer (355mL), one 5 oz glass of wine (148 mL), or one 1?? oz glass of hard liquor (44 mL). General instructions ? Take tezj-gsa-qiexoma and prescription medicines only as told by your health care provider. ? Keep all follow-up visits. This is important. This includes having regularly scheduled colonoscopies. Talk to your health care provider about when you need a colonoscopy. Contact a health care provider if: ? You have new or worsening bleeding during a bowel movement. ? You have new or increased blood in your stool. ? You have a change in bowel habits. ? You lose weight for no known reason. Summary ? Colon polyps are tissue growths inside the colon, which is part of the large intestine. They are one type of polyp that can grow in the body. ? Most colon polyps are noncancerous (benign), but some can become cancerous over time. ? This condition is diagnosed with a colonoscopy. ? This condition is treated by removing any polyps that are found. Most polyps can be removed during a colonoscopy. This information is not intended to replace advice given to you by your health care provider. Make sure you discuss any questions you have with your health care provider. Document Revised: 12/26/2020 Document Reviewed: 12/26/2020 [employer] Patient Education ?? 2021 [employer] Patient Name:ANATOLIY MCCARTHY I have received this information and my questions have been answered. 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 Proceed as planned.? Channing Downs MD 07/25/2022 ?? Electronically Signed on 07/25/22 01:56 PM Channing Downs MD * Laura Tijerina: PERFORM Event Display: History and Physical Authored Date: [id number] ANATOLIY MCCARTHY :1945 Age:76 years Sex:Female Primary Care Physician: Jackson Robin MD Chief Complaint positive cologuard History of Present Illness The patient has a positive Cologuard test. ?? She states receiving a notification that she was due for a colonoscopy screening and initially opted for the Cologuard test before scheduling her diagnostic colonoscopy. ?? She denies any change in bowel habits in the last year such as:??diarrhea, abdominal pain, weight change, hematochezia, black or tarry stools, or fx hx of colon cancer. She has fx hx of Crohn's in her niece and grand-niece.??She has hx of one polyp in the past with approximately??6 cscopes altogether. She believes her last one was more than 5 years ago. She prefers to be awake, but??moderately??sedated for her procedure. ?? She is s/p hysterectomy and appendectomy. 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 ? Review of Systems A complete 12 point ROS was obtained and negative except for those mentioned in the HPI.?? Physical Exam General: Non-labored breathing pattern ?? Cardio: RRR ?? Abdominal: Soft, NT, ND Assessment/Plan Positive colorectal cancer screening using Cologuard test??[id number] ?We discussed the implications of a stool DNA-based colorectal screening test:? Colonoscopy performed for a positive Cologuard may demonstrate one of the following findings: Colorectal cancer, 4%, advanced adenoma including sessile serrated polyps greater than or equal to 1 cm, 20%, or non-advanced adenoma, 31%, or no colorectal neoplasia, 45%. These means are derived from a prospective cross-sectional screening study of 10,000 individuals at average risk for colorectal cancer who were screened with both Cologuard and colonoscopy. ?? Risks, benefits and alternatives to the procedure were discussed with the patient in detail. Risks,including but not limited to, bleeding, infection, perforation, missed lesions, need to reoperate, failure to resolve symptoms and pain were discussed with the patient who understood these risks and requested to proceed as planned. ?? All questions answered. Patient understood and agreed with the above plan. ?? I have reviewed the EMR, including records from PCP, specialists along with review of imaging/diagnostics, which were discussed with the patient where applicable to current presentation. Problem List/Past Medical History Ongoing ?Abnormal gait ??Aortic valve regurgitation ??Autoimmune thyroiditis ??Benign neoplasm of cerebral meninges ??Benign paroxysmal positional vertigo ??Blood pressure check ??Cataract ??Cervical spondylosis with radiculopathy ??Degeneration of cervical intervertebral disc ??Dizziness and giddiness ??Elevated blood pressure reading ??Essential thrombocythemia ??Gastroesophageal reflux disease ??Hypertension ??Hypothyroidism ??Neck pain ??Palpitations ??Positive colorectal cancer screening using Cologuard test ??Postoperative nausea and vomiting ??Rosacea ??Small vessel cerebrovascular disease Historical ?No qualifying data Procedure/Surgical History ???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 Medications ??emollient topical cream, PRN, apply 5 g twice a day by topical route as needed ??Estrace 2 mg oral tablet, 2 mg= 1 tab, Oral, Daily ??hydrOXYzine hydrochloride 10 mg oral tablet ??ibuprofen 600 mg oral tablet ??multivitamin adult, oral tablet, 1 tab, Oral, every morning ??Synthroid 50 mcg (0.05 mg) oral tablet, 50 mcg= 1 tab, Oral, Daily ??triamcinolone 0.1% topical ointment Allergies No Known Medication Allergies Social History Electronic Cigarette/Vaping ??Electronic Cigarette Use: Never. Tobacco ??Former tobacco user Tobacco Use:. Family History ??Congestive heart failure: Mother. ??Family history of cancer: Sister. ??Heart disease: Mother and Father. ??Hypertensive disorder: Mother and Father. Immunizations ??Vaccine ??Date ??Status ??tetanus-diphth toxoids (Td) adult/adol ??12/04/2021 ??Recorded ??SARS-CoV-2 (COVID-19) mRNA-1273 vaccine ??08/05/2021 ??Recorded ??influenza, unspecified formulation ??06/19/2021 ??Recorded ??SARS-CoV-2 (COVID-19) mRNA-1273 vaccine ??12/05/2020 ??Recorded ??SARS-CoV-2 (COVID-19) mRNA-1273 vaccine ??11/07/2020 ??Recorded ??influenza, unspecified formulation ??06/13/2020 ??Recorded ??influenza, unspecified formulation ??06/09/2019 ??Recorded ??influenza, unspecified formulation ??06/17/2018 ??Recorded ??influenza, unspecified formulation ??06/04/2017 ??Recorded ??influenza virus vaccine, inactivated ??06/24/2016 ??Recorded ??pneumococcal 13-valent conjugate vaccine ??08/13/2015 ??Recorded ??influenza virus vaccine, inactivated ??06/27/2015 ??Recorded ??influenza virus vaccine, inactivated ??06/14/2014 ??Recorded ??influenza virus vaccine, inactivated ??06/15/2013 ??Recorded ??zoster vaccine live ??12/16/2012 ??Recorded ??influenza virus vaccine, inactivated ??06/10/2012 ??Recorded ??tetanus/diphth/pertuss (Tdap) adult/adol ??10/15/2011 ??Recorded ??influenza virus vaccine, inactivated ??06/06/2011 ??Recorded ??pneumococcal 23-polyvalent vaccine ??06/26/2010 ??Recorded ??influenza virus vaccine, inactivated ??06/21/2010 ??Recorded ??influenza virus vaccine, inactivated ??09/06/2009 ??Recorded ??influenza virus vaccine, inactivated ??06/14/2008 ??Recorded ??influenza virus vaccine, inactivated ??07/05/2007 ??Recorded ??influenza virus vaccine, inactivated ??06/21/2006 ??Recorded ? Signature Line John Bull ?? [1] [1]??Office Visit Note; John Bull 05/20/2022 14:33 EDT Electronically Signed on 05/22/22 02:53 PM Laura Tijerina Patient Care team information Personnel Name: Jackson Robin MD Address: Address: [address] [address]- [place]
--- OUTSIDE RECORDS SUMMARY | 2022-12-31 13:42 | XMS_ITS | Continuity of Care Document ---
Author Name Unknown Organization [facility] Address [address] [place] [address] Care Team Providers Care Meterman Name Role Phone Jackson Robin Primary Care Physician Encounter [facility] [id number] Date(s): 05/21/22 - 07/13/22 [facility] [address] [place] [address] Discharge Disposition: Home or Self Care Attending Physician: Channing Downs MD Admitting Physician: Channing Downs MD Referring Physician: Jackson Robin MD Allergies, Adverse Reactions, Alerts No Known Medication Allergies Assessment and Plan Future Appointments Immunizations Given and Recorded Vaccine Date Status [...] Active Hypertension Confirmed Active Hypothyroidism Confirmed Active Neck pain Confirmed Active Palpitations Confirmed Active Blood pressure check Confirmed Active Postoperative nausea and vomiting Confirmed 01/31/19 Active Rosacea Confirmed Active Small vessel cerebrovascular disease Confirmed Active Positive colorectal cancer screening using Cologuard test Confirmed Active 1Right Procedures Procedure Date Related Diagnosis Body Site Status Release palm contracture 1 06/03/21 Completed Release 2 10/29/20 Completed Procedure on hand 3 02/01/19 Compl eted Procedure on hand 4 07/07/18 Compl eted Cervical spine surgery 5 09/20/04 Completed Cholecystectomy 1987 Completed Appendectomy Completed Brain surgery 6 Completed Hysterectomy Completed 1L palmar Dupuytren's contracture w/index finger extension 2excision of Dupuytren's contracture palmar plus digital extension to the R long finger 3R long finger soft tissue skin rearrangement for 3cm length 4removal of palmar Dupuytren's w/ extension out to the PIP of the L small finger 5C5-C6 level 6Tumor removed, done in [place] Social History Social History Type Response Tobacco Former tobacco user Tobacco Use:. Sex Female Patient Care team information Personnel Name: Jackson Robin MD Address: Address: [address] [address]- [place]
[2022-12-31 13:53] LABS: Abs Immature Grans 0.04 10^3/uL (0.0-0.06); Absolute Basophil Count 0.06 10^3/uL (0.0-0.2); Absolute Eosinophil Count 0.09 10^3/uL (0.0-0.7); Absolute Lymphocyte Count 0.82 10^3/uL (1.2-3.4); Absolute Monocyte Count 0.71 10^3/uL (0.1-0.8); Basophils % 0.5; Eosinophils % 0.8; HCT 41.8 % (36.0-46.0); HGB 14.4 g/dL (11.2-15.7); Immature Grans % 0.4; Lymphocytes % 7.4; MCH 30.8 pg (27.0-33.0); MCHC 34.4 % (32.0-36.0); MCV 90 fL (80-95); MPV 9.5 fL (8.0-11.0); Monocytes % 6.4; Neutrophils % 84.5; Platelet Count 275 10^3/uL (130-400); RBC 4.67 10^6/uL (3.93-5.22); RDW 12.8 % (11.7-14.6); RDW-SD 41.8 fL; WBC 11.04 10^3/uL (4.4-10.8)
[2022-12-31 13:56] LABS: Absolute Neutrophil Count 9.33 10^3/uL (1.2-6.7)
[2022-12-31 14:04] LABS: ALT 19 U/L (14-59); AST 19 U/L (15-37); Albumin 3.3 g/dL (3.4-5.0); Alkaline Phosphatase 90 U/L (46-116); Anion Gap 6.1 mmol/L (3-11); BUN 16 mg/dL (7-18); Bilirubin, Total 0.3 mg/dL (0.2-1.0); CO2 27.9 mmol/L (21.0-32.0); CREATININE 0.4 mg/dL (0.55-1.02); Calcium 9.1 mg/dL (8.5-10.1); Chloride 105 mmol/L (98-107); Estimated GFR 101.87 (mL/min/1.73m2); Glucose 102 mg/dL (74-106); Sodium 139 mmol/L (136-145)
[2023-01-16] MEDS: Normal Saline Flush 10 ML SYR IVP (09:45)
== END 2023-01-18 23:59 | disposition home or self-care (01) ==
LOC: INF 09:30
PROVIDERS: PCP Family Medicine; Visit Provider Nurse Practitioner Adult Health
DX: Z45.2 Encounter for adjustment and management of vascular access device (principal); C84.10 Sezary disease, unspecified site
CPT/HCPCS: 36591; 80053; 96523; 85025

== ENCOUNTER 2023-02-12 02:40 | Outpatient (RCR) | payer BC, SELFPAY ==
[2023-01-28] MEDS: Normal Saline Flush 10 ML SYR IVP (11:23)
[2023-01-28 11:31] LABS: Abs Immature Grans 0.03 10^3/uL (0.0-0.06); Absolute Basophil Count 0.06 10^3/uL (0.0-0.2); Absolute Eosinophil Count 0.15 10^3/uL (0.0-0.7); Absolute Monocyte Count 0.63 10^3/uL (0.1-0.8); Absolute Neutrophil Count 6.09 10^3/uL (1.2-6.7); Basophils % 0.8; Eosinophils % 1.9; HCT 39.7 % (36.0-46.0); HGB 13.6 g/dL (11.2-15.7); Immature Grans % 0.4; Lymphocytes % 12.6; MCH 30.6 pg (27.0-33.0); MCHC 34.3 % (32.0-36.0); MCV 89 fL (80-95); MPV 9.5 fL (8.0-11.0); Monocytes % 7.9; Neutrophils % 76.4; Platelet Count 280 10^3/uL (130-400); RBC 4.45 10^6/uL (3.93-5.22); RDW 12.3 % (11.7-14.6); RDW-SD 39.9 fL; WBC 7.96 10^3/uL (4.4-10.8)
[2023-01-28 11:48] LABS: ALT 16 U/L (14-59); AST 18 U/L (15-37); Alkaline Phosphatase 80 U/L (46-116); Anion Gap 7.7 mmol/L (3-11); BUN 18 mg/dL (7-18); Bilirubin, Total 0.2 mg/dL (0.2-1.0); CO2 27.3 mmol/L (21.0-32.0); CREATININE 0.4 mg/dL (0.55-1.02); Calcium 8.4 mg/dL (8.5-10.1); Chloride 106 mmol/L (98-107); Estimated GFR 101.87 (mL/min/1.73m2); Glucose 97 mg/dL (74-106); Sodium 141 mmol/L (136-145); Total Protein 6.5 g/dL (6.4-8.2)
[2023-02-12 10:11] LABS: Abs Immature Grans 0.04 10^3/uL (0.0-0.06); Absolute Basophil Count 0.07 10^3/uL (0.0-0.2); Absolute Eosinophil Count 0.21 10^3/uL (0.0-0.7); Absolute Lymphocyte Count 0.73 10^3/uL (1.2-3.4); Absolute Monocyte Count 0.54 10^3/uL (0.1-0.8); Absolute Neutrophil Count 6.33 10^3/uL (1.2-6.7); Basophils % 0.9; Eosinophils % 2.7; HCT 41.2 % (36.0-46.0); HGB 13.9 g/dL (11.2-15.7); Immature Grans % 0.5; Lymphocytes % 9.2; MCH 30.5 pg (27.0-33.0); MCHC 33.7 % (32.0-36.0); MCV 91 fL (80-95); MPV 9.4 fL (8.0-11.0); Monocytes % 6.8; Neutrophils % 79.9; Platelet Count 275 10^3/uL (130-400); RBC 4.55 10^6/uL (3.93-5.22); RDW 12.8 % (11.7-14.6); RDW-SD 42.5 fL; WBC 7.92 10^3/uL (4.4-10.8)
[2023-02-12 10:29] LABS: ALT 14 U/L (14-59); AST 16 U/L (15-37); Albumin 3.3 g/dL (3.4-5.0); Alkaline Phosphatase 82 U/L (46-116); Anion Gap 8.7 mmol/L (3-11); BUN 19 mg/dL (7-18); Bilirubin, Total 0.3 mg/dL (0.2-1.0); CO2 27.3 mmol/L (21.0-32.0); CREATININE 0.5 mg/dL (0.55-1.02); Calcium 8.4 mg/dL (8.5-10.1); Chloride 105 mmol/L (98-107); Estimated GFR 96.54 (mL/min/1.73m2); Glucose 93 mg/dL (74-106); Potassium 3.4 mmol/L (3.5-5.1); Sodium 141 mmol/L (136-145); Total Protein 6.9 g/dL (6.4-8.2)
== END 2023-02-18 23:59 | disposition home or self-care (01) ==
LOC: INF 02:40
PROVIDERS: PCP Family Medicine; Visit Provider Nurse Practitioner Adult Health
DX: C84.10 Sezary disease, unspecified site (principal); Z45.2 Encounter for adjustment and management of vascular access device
CPT/HCPCS: 36415; 36591; 80053; 85025

== ENCOUNTER 2023-02-25 03:31 | Outpatient (RCR) | payer BC, SELFPAY ==
[2023-02-25] MEDS: Normal Saline Flush 10 ML SYR IVP (10:51)
[2023-02-25 11:02] LABS: Abs Immature Grans 0.06 10^3/uL (0.0-0.06); Absolute Basophil Count 0.07 10^3/uL (0.0-0.2); Absolute Monocyte Count 0.57 10^3/uL (0.1-0.8); Absolute Neutrophil Count 9.44 10^3/uL (1.2-6.7); Basophils % 0.6; Eosinophils % 0.6; HCT 38.1 % (36.0-46.0); HGB 13.1 g/dL (11.2-15.7); Immature Grans % 0.6; Lymphocytes % 6.4; MCH 31.2 pg (27.0-33.0); MCHC 34.4 % (32.0-36.0); MCV 91 fL (80-95); MPV 9.5 fL (8.0-11.0); Monocytes % 5.2; Neutrophils % 86.6; Platelet Count 313 10^3/uL (130-400); RDW 12.8 % (11.7-14.6); RDW-SD 42.3 fL
[2023-02-25 11:05] LABS: Absolute Eosinophil Count 0.07 10^3/uL (0.0-0.7)
[2023-02-25 11:14] LABS: ALT 15 U/L (14-59); AST 12 U/L (15-37); Albumin 3.2 g/dL (3.4-5.0); Alkaline Phosphatase 65 U/L (46-116); Anion Gap 7.8 mmol/L (3-11); BUN 16 mg/dL (7-18); Bilirubin, Total 0.3 mg/dL (0.2-1.0); CO2 27.2 mmol/L (21.0-32.0); CREATININE 0.5 mg/dL (0.55-1.02); Calcium 8.5 mg/dL (8.5-10.1); Chloride 104 mmol/L (98-107); Estimated GFR 96.54 (mL/min/1.73m2); Glucose 109 mg/dL (74-106); Potassium 3.5 mmol/L (3.5-5.1); Sodium 139 mmol/L (136-145); Total Protein 6.5 g/dL (6.4-8.2)
== END 2023-03-20 23:59 | disposition home or self-care (01) ==
LOC: INF 03:31
PROVIDERS: PCP Family Medicine; Visit Provider Nurse Practitioner Adult Health
DX: C84.10 Sezary disease, unspecified site (principal); Z45.2 Encounter for adjustment and management of vascular access device
CPT/HCPCS: 36591; 80053; 85025

== ENCOUNTER 2023-05-07 08:36 | Outpatient (CLI) | payer BC, SELFPAY ==
--- NOTE | 2023-05-07 08:30 | RT.EKG_ITS ---
APPROVED REPORT Exam: Resting ECG Reason for Exam: High Risk Medication Patient Location: O HR:87 bpm ECG Measurements Heart Rate 87 AXIS NH 161 P 53 QRSd 103 QRS 15 QT 392 T 36 QTc 472 Conclusion Sinus rhythm...normal P axis, V-rate 50- 99 Normal Electrocardiogram
== END 2023-05-07 08:37 | disposition home or self-care (01) ==
LOC: CARDOPNVT 08:36
PROVIDERS: PCP Family Medicine; Visit Provider Family Medicine
DX: Z79.899 Other long term (current) drug therapy (principal)
CPT/HCPCS: 93005; 93010

== ENCOUNTER 2023-05-20 01:31 | Outpatient (RCR) | payer BC, SELFPAY ==
[2023-05-06] MEDS: Normal Saline Flush 10 ML SYR IVP (08:21)
[2023-05-06 08:42] LABS: Abs Immature Grans 0.03 10^3/uL (0.0-0.06); Absolute Basophil Count 0.06 10^3/uL (0.0-0.2); Absolute Eosinophil Count 0.37 10^3/uL (0.0-0.7); Absolute Lymphocyte Count 0.67 10^3/uL (1.2-3.4); Absolute Monocyte Count 0.74 10^3/uL (0.1-0.8); Absolute Neutrophil Count 6.28 10^3/uL (1.2-6.7); Basophils % 0.7; Eosinophils % 4.5; HCT 39.9 % (36.0-46.0); HGB 13.5 g/dL (11.2-15.7); Immature Grans % 0.4; Lymphocytes % 8.2; MCH 30.8 pg (27.0-33.0); MCHC 33.8 % (32.0-36.0); MCV 91 fL (80-95); MPV 9.5 fL (8.0-11.0); Monocytes % 9.1; Neutrophils % 77.1; Platelet Count 347 10^3/uL (130-400); RBC 4.38 10^6/uL (3.93-5.22); RDW-SD 43.5 fL; WBC 8.15 10^3/uL (4.4-10.8)
[2023-05-06 08:58] LABS: ALT 17 U/L (14-59); AST 18 U/L (15-37); Albumin 2.8 g/dL (3.4-5.0); Alkaline Phosphatase 71 U/L (46-116); Anion Gap 9.1 mmol/L (3-11); BUN 12 mg/dL (7-18); Bilirubin, Total 0.2 mg/dL (0.2-1.0); CO2 26.9 mmol/L (21.0-32.0); CREATININE 0.5 mg/dL (0.55-1.02); Calcium 8.3 mg/dL (8.5-10.1); Chloride 107 mmol/L (98-107); Estimated GFR 96.54 (mL/min/1.73m2); Glucose 128 mg/dL (74-106); LDH 279 U/L (81-234); Potassium 3.6 mmol/L (3.5-5.1); Sodium 143 mmol/L (136-145)
[2023-05-06 09:26] LABS: Magnesium 1.7 mg/dL (1.8-2.4)
[2023-05-13] MEDS: Normal Saline Flush 10 ML SYR IVP (08:41)
[2023-05-13 09:02] LABS: Abs Immature Grans 0.46 10^3/uL (0.0-0.06); Absolute Basophil Count 0.12 10^3/uL (0.0-0.2); Absolute Lymphocyte Count 1.03 10^3/uL (1.2-3.4); Absolute Monocyte Count 0.78 10^3/uL (0.1-0.8); Basophils % 1.1; Eosinophils % 0.9; HCT 37.9 % (36.0-46.0); HGB 12.9 g/dL (11.2-15.7); Immature Grans % 4.2; Lymphocytes % 9.4; MCH 30.7 pg (27.0-33.0); MCV 90 fL (80-95); MPV 9.6 fL (8.0-11.0); Monocytes % 7.1; Neutrophils % 77.3; Platelet Count 245 10^3/uL (130-400); RDW 12.6 % (11.7-14.6); RDW-SD 41.8 fL
[2023-05-13 09:16] LABS: ALT 79 U/L (14-59); AST 18 U/L (15-37); Albumin 3.2 g/dL (3.4-5.0); Alkaline Phosphatase 107 U/L (46-116); BUN 15 mg/dL (7-18); Bilirubin, Total 0.3 mg/dL (0.2-1.0); CREATININE 0.7 mg/dL (0.55-1.02); Calcium 8.6 mg/dL (8.5-10.1); Chloride 105 mmol/L (98-107); Estimated GFR 89.02 (mL/min/1.73m2); Glucose 154 mg/dL (74-106); LDH 300 U/L (81-234); Magnesium 1.7 mg/dL (1.8-2.4); Potassium 3.2 mmol/L (3.5-5.1); Sodium 141 mmol/L (136-145); Total Protein 6.9 g/dL (6.4-8.2)
== END 2023-05-21 23:59 | disposition home or self-care (01) ==
LOC: INF 01:31
PROVIDERS: PCP Family Medicine; Visit Provider Nurse Practitioner Adult Health
DX: C84.A8 Cutaneous T-cell lymphoma, unspecified, lymph nodes of multiple sites (principal); Z45.2 Encounter for adjustment and management of vascular access device
CPT/HCPCS: 36591; 80053; 83615; 83735; 85025